=== PATIENT | male | born 1985 | race Hispanic/Latino ===

== ENCOUNTER 2021-11-02 11:55 | Emergency (ER) | payer BC ==
[2021-11-02] MEDS ORDERED: Ondansetron PF 4 MG/2 ML Vial ONE (12:41)
[2021-11-02 13:12] LABS: #Monocytes 0.2 10x3/uL (0.0-1.1); #Neutrophils 5.8 10x3/uL (1.5-8.4); %Basophils 0.1 % (0.0-2.0); %Lymphocytes 11.2 % (18.0-47.0); %Monocytes 3.1 % (0.0-10.0); %Neutrophils 84.9 % (40.0-75.0); Hemoglobin 14.9 g/dL (13.5-17.5); Mean Corpuscular HGB CONC 32.8 g/dL (32.0-36.0); Mean Corpuscular Hemoglobin 26.1 pg (27.0-33.0); Mean Corpuscular Volume 79.5 fl (81.2-95.1); Mean Platelet Volume 10.8 fl (7.4-10.4); Platelet Count 278 10x3/uL (150-450); RBC Distribution Width 14.1 % (11.5-14.5); Red Blood Cell (RBC) Count 5.71 10x6/uL (4.32-5.72); White Blood Cell (WBC) Count 6.8 10x3/uL (3.5-10.5)
[2021-11-02 13:28] LABS: ALT (SGPT) 86 U/L (8-55); AST (SGOT) 78 U/L (5-34); Albumin 3.8 g/dL (3.5-5.0); Alkaline Phosphatase 125 U/L (40-110); Anion Gap 16 mmol/L (10-20); BUN (Urea Nitrogen) 10 mg/dL (8.9-20.6); Bilirubin, Total 0.4 mg/dL (0.2-1.2); Calc. Creatinine Clearance 0 mL/min (70-130); Calcium 9.2 mg/dL (7.8-10.44); Carbon Dioxide 24 mmol/L (22-29); Chloride 101 mmol/L (98-107); Glucose 111 mg/dL (70-105); Magnesium 2.1 mg/dL (1.6-2.6); Potassium 3.9 mmol/L (3.5-5.1); Protein, Total 7.8 g/dL (6.0-8.3); Sodium 137 mmol/L (136-145)
== END 2021-11-02 14:46 | disposition home or self-care (01) ==
LOC: CSHERS 11:55
DX: U07.1 COVID-19 (principal); J12.82 Pneumonia due to coronavirus disease 2019
CPT/HCPCS: 36415; 71275; 80053; 83605; 83735; 85025; 87040; 87149; 94760; 96374; J2405

== ENCOUNTER 2021-11-03 06:31 | Emergency (ER) | payer BC ==
[2021-11-03 08:20] LABS: Hemoglobin 14.1 g/dL (13.5-17.5); Mean Corpuscular HGB CONC 32.3 g/dL (32.0-36.0); Mean Corpuscular Hemoglobin 25.6 pg (27.0-33.0); Mean Corpuscular Volume 79.5 fl (81.2-95.1); Mean Platelet Volume 10.2 fl (7.4-10.4); Platelet Count 356 10x3/uL (150-450); RBC Distribution Width 14.3 % (11.5-14.5)
[2021-11-03 08:21] LABS: MDiff Complete? YES
[2021-11-03] MEDS ORDERED: predniSONE 20 MG TAB ONE (08:25)
[2021-11-03] MEDS ORDERED: Ibuprofen 800 MG TAB ONE (08:27)
[2021-11-03 08:35] LABS: ALT (SGPT) 96 U/L (8-55); AST (SGOT) 73 U/L (5-34); Albumin 3.8 g/dL (3.5-5.0); Alkaline Phosphatase 131 U/L (40-110); Anion Gap 17 mmol/L (10-20); BUN (Urea Nitrogen) 8 mg/dL (8.9-20.6); Bilirubin, Total 0.3 mg/dL (0.2-1.2); Calc. Creatinine Clearance 0 mL/min (70-130); Calcium 9.3 mg/dL (7.8-10.44); Carbon Dioxide 24 mmol/L (22-29); Chloride 100 mmol/L (98-107); Globulin 4.3 g/dL (2.4-3.5); Glucose 114 mg/dL (70-105); Potassium 4.5 mmol/L (3.5-5.1); Protein, Total 8.1 g/dL (6.0-8.3); Sodium 136 mmol/L (136-145)
[2021-11-03 08:43] LABS: Band 3 % (5-11); Lymphocytes 17 % (21-51); Monocytes 7 % (0-10); Neutrophil 70 % (42-75); Reactive Lymphocytes 3 % (0-10)
[2021-11-03 08:47] LABS: Platelet Morphology Comment Appears Adequate
[2021-11-03 08:48] LABS: RBC Morphology Normal
== END 2021-11-03 10:00 | disposition home or self-care (01) ==
LOC: CSHERS 06:31
DX: U07.1 COVID-19 (principal); J12.82 Pneumonia due to coronavirus disease 2019
CPT/HCPCS: 71045; 80053; 83605; 84484; 85025; 86140; 93005; 94760; J7512

== ENCOUNTER 2021-11-03 18:31 | Emergency (ER) | payer BC | END 2021-11-03 20:51 | disposition home or self-care (01) | LOC: CSHERS 18:31 | DX: R53.81 Other malaise (principal) | CPT/HCPCS: 99282 ==